=== PATIENT | female | born 1970 | race Caucasian/White ===

== ENCOUNTER 2016-03-22 18:50 | Emergency (ER) | payer MEDICAID ==
[~2016-03-22] VITALS: Ht 157.5 cm; Wt 78.5 kg
[~2016-03-22 18:50] MED LIST: CIPR500T4 PO; IBUP800T25 PO; SODI44SP11 NASAL
[2016-03-22 19:15] VITALS: Ht 157.5 cm; Wt 78.5 kg
[2016-03-22] MEDS ORDERED: IBUP-1542 PO (19:25)
[2016-03-22] MEDS ORDERED: ALBU8.5H3 INH (19:25)
[2016-03-22] MEDS ORDERED: GUAI120S26 PO (19:25)
[2016-03-22] MEDS ORDERED: CETI10CA PO (19:25)
--- NOTE | 2016-03-22 19:30 | ERD ---
ER Documentation Chief Complaint Date/Time DATE: 03/22/16 TIME: 19:28 Chief Complaint Fever and worsening cough HPI 45-year-old female presents to emergency department for complaints of fever cough runny nose nasal congestion for 7 days. Patient started to have fever 2 days ago. Patient has been having dry cough, did not patient does not present with clear nasal discharge. Patient does not have any sore throat or ear pain. Patient has been having on and off fever, take intolerance up with fever control. Patient does not have any chest pain or palpitations. Patient denies any dizziness. Patient denies any sick contacts. ROS All systems reviewed and are negative except as per history of present illness. Medications Home Meds Active Scripts Ibuprofen* (Motrin*) 600 Mg Tab, 600 MG PO Q6H Y for PAIN AND OR ELEVATED TEMP, #30 TAB Prov:TUNDE LAZARO NP 03/22/16 Cetirizine Hcl* (Zyrtec*) 10 Mg Capsule, 10 MG PO DAILY, #30 TAB.CHEW Prov:TUNDE LAZARO NP 03/22/16 Vvmoahujezt-U-Izecuosexu Hb* (Guaifenesin* DM Syrup) 120 Ml Syrup, 10 ML PO Q4H Y for COUGH, #120 ML Prov:TUNDE LAZARO NP 03/22/16 Albuterol Sulfate* (Proair HFA*) 8.5 Gm Hfa.aer.ad, 2 PUFF INH Q4H Y for WHEEZING AND SOB, #1 INHALER Prov:TUNDE LAZARO NP 03/22/16 Sodium Chloride (Saline Nasal [place]) 45 Ml [place], 2 SPRAYS NASAL Q2H, #1 BOTTLE Prov:OSORIO RAYMUNDO NP 09/04/15 Ibuprofen* (Motrin*) 800 Mg Tab, 800 MG PO Q8 Y for PAIN AND OR ELEVATED TEMP, # 30 TAB Prov:OSORIO RAYMUNDO NP 09/04/15 Ciprofloxacin Hcl* (Ciprofloxacin Hcl*) 500 Mg Tablet, 500 MG PO BID for 3 Days , TAB Prov:CRISTI VIDALES PA-C 11/01/14 Allergies Allergies: Coded Allergies: No Known Allergy (Verified , 09/04/15) PMhx/Soc Medical and Surgical Hx: pt denies Medical Hx History of Surgery: Yes ( section) Anesthesia Reaction: No Hx Neurological Disorder: No Hx Respiratory Disorders: No Hx Cardiac Disorders: No Hx Psychiatric Problems: No Hx Miscellaneous Medical Probl: No Hx Alcohol Use: No Hx Substance Use: No Hx Tobacco Use: No FmHx Family History: No coronary disease, No diabetes, No other Physical Exam Vitals Vital Signs Date Time Temp Pulse Resp B/P Pulse Ox O2 Delivery O2 Flow Rate FiO2 03/22/16 19:15 97.5 66 20 111/67 100 Physical Exam GENERAL: The patient is well developed and appropriate for usual state of health, in no apparent distress. HEENT: Atraumatic. Ears: Normal tympanic membrane, no erythema or bulging. No ear canal swelling. No ear discharge. Nose: Erythematous nasal turbinates with clear nasal discharge. Throat: oropharynx erythematous with postnasal drip. No tonsillar swelling or tonsillar exudates. No lymphadenopathy. CHEST: Clear to auscultation bilaterally. There are no rales, wheezes or rhonchi. HEART: Regular rate and rhythm. No murmurs, clicks, rubs or gallops. No S3 or S4. ABDOMEN: Soft, nontender and nondistended. Good bowel sounds. No rebound or guarding. No gross peritonitis. No gross organomegaly or masses. No Forrest sign or McBurney point tenderness. BACK: No midline or flank tenderness. EXTREMITIES: Equal pulses bilaterally. There is no peripheral clubbing, cyanosis or edema. No focal swelling or erythema. Full range of motion. Grossly neurovascularly intact. NEURO: Alert and oriented. Cranial nerves 2-12 intact. Motor strength in all 4 extremities with 5/5 strength. Sensation grossly intact. Normal speech and gait. SKIN: There is no apparent rash or petechia. The skin is warm and dry. HEMATOLOGIC AND LYMPHATIC: There is no evidence of excessive bruising or lymphedema. No gross cervical, axillary, or inguinal lymphadenopathy. Procedures/MDM Medical Decision Making: Patient symptoms are most likely consistent with acute bronchitis, which viral in origin. There is low suspicion for Pneumonia at this time since patients lungs sounds are clear, patient O2 saturation is normal and patient doesnt show any respiratory distress. Radiology exam is not indicated at this time. There is low suspicion for other cardiopulmonary emergencies at this time such as CHF, Pulmonary Embolism, Pneumothorax, or any other cardiopulmonary emergencies at this time. There is low suspicion for sepsis. Patient appears well and is hemodynamically stable. Fever is controlled with medicines . Disposition: Home. Condition: Stable Prescriptions: Zyrtec ibuprofen albuterol guaifenesin DM Instructions: Patient is advised to take medications as prescribed. Patient is advised to rest. Patient advised to increase fluid intake, do humidifier at home and if possible, do salt water gargles. Patient is advised that if symptoms are worse, shortness of breath, uncontrolled fever, stridor, vomiting, worst signs and symptoms to return to emergency department immediately. Otherwise, patient is advised to follow up with primary doctor in 5-7 days. Departure Diagnosis: Primary Impression: Acute bronchitis Bronchitis organism: unspecified organism Qualified Code: J20.9 - Acute bronchitis, unspecified organism Condition: Stable Patient Instructions: Bronchitis With Wheezing (Adult) TUNDE LAZARO NP Mar 22, 2016 19:30
== END 2016-03-22 19:31 | disposition home or self-care (01) ==
LOC: E/R 18:50
DX: J20.9 Acute bronchitis, unspecified (principal)
CPT/HCPCS: 99283

== ENCOUNTER 2016-05-18 19:25 | Emergency (ER) | payer MEDICAID ==
[~2016-05-18] VITALS: Ht 157.5 cm; Wt 77.0 kg
[~2016-05-18 19:25] MED LIST changes: +ALBU8.5H3 INH; +CETI10CA PO; +GUAI120S26 PO; +IBUP-1542 PO
[2016-05-18 20:04] VITALS: Ht 157.5 cm; Wt 77.0 kg
[2016-05-18 20:53] LABS: URINE BLOOD (Dip) POC Trace-intact (NEGATIVE)
[2016-05-18] MEDS ORDERED: IBUPROFEN 600 MG TAB PO ONE (21:00)
--- NOTE | 2016-05-18 22:02 | ERD ---
ER Documentation Chief Complaint Date/Time DATE: 05/18/16 TIME: 21:56 Chief Complaint Flu symptoms since yesterday, pelvic pain since 0300 HPI Pleasant 45-year-old female presenting to emergency department today for sore throat, body aches, fevers and chills for 2 days, and dysuria starting this morning when she woke up. Patient reports burning urgency and frequency of urination, cloudy urine, low back pain. Patient is able to eat and drink without deficit but reports pain with swallowing. Patient reports tactile fever but has taken no ksjj-hyg-hwdjgrp medication for symptomatic relief. ROS All systems reviewed and are negative except as per history of present illness. Medications Home Meds Active Scripts Ibuprofen* (Motrin*) 600 Mg Tab, 600 MG PO Q6H Y for PAIN AND OR ELEVATED TEMP, #30 TAB Prov:TUNDE LAZARO NP 03/22/16 Cetirizine Hcl* (Zyrtec*) 10 Mg Capsule, 10 MG PO DAILY, #30 TAB.CHEW Prov:TUNDE LAZARO NP 03/22/16 Zhgkjsfkhze-L-Hwkcioqdqa Hb* (Guaifenesin* DM Syrup) 120 Ml Syrup, 10 ML PO Q4H Y for COUGH, #120 ML Prov:TUNDE LAZARO NP 03/22/16 Albuterol Sulfate* (Proair HFA*) 8.5 Gm Hfa.aer.ad, 2 PUFF INH Q4H Y for WHEEZING AND SOB, #1 INHALER Prov:TUNDE LAZARO NP 03/22/16 Sodium Chloride (Saline Nasal [place]) 45 Ml [place], 2 SPRAYS NASAL Q2H, #1 BOTTLE Prov:OSORIO RAYMUNDO NP 09/04/15 Ibuprofen* (Motrin*) 800 Mg Tab, 800 MG PO Q8 Y for PAIN AND OR ELEVATED TEMP, # 30 TAB Prov:OSORIO RAYMUNDO NP 09/04/15 Ciprofloxacin Hcl* (Ciprofloxacin Hcl*) 500 Mg Tablet, 500 MG PO BID for 3 Days , TAB Prov:CRISTI VIDALES PA-C 11/01/14 Allergies Allergies: Coded Allergies: No Known Allergy (Verified , 09/04/15) PMhx/Soc Medical and Surgical Hx: pt denies Medical Hx History of Surgery: Yes ( section x2) Anesthesia Reaction: No Hx Neurological Disorder: No Hx Respiratory Disorders: No Hx Cardiac Disorders: No Hx Psychiatric Problems: No Hx Miscellaneous Medical Probl: No Hx Alcohol Use: Yes (occasional, socially only) Hx Substance Use: No Hx Tobacco Use: No Smoking Status: Never smoker Physical Exam Vitals Vital Signs Date Time Temp Pulse Resp B/P Pulse Ox O2 Delivery O2 Flow Rate FiO2 05/18/16 20:04 98.9 77 20 126/67 100 Vitals stable, nursing notes reviewed Physical Exam Const: No acute distress Head: Atraumatic Eyes: Normal Conjunctiva, no pallor, EOMI, PERRLA ENT: Bilateral tympanic membranes are translucent, nasal mucosa is moist, right turbinates touching, clear mucus noted, pharynx inflamed, cobblestoning, mucus noted, tonsils are not visualized, uvula rises and falls with pronation Neck: Full range of motion..~ No meningismus. No lymphadenopathy Resp: Chest rises and falls symmetrically clear to auscultation bilaterally no rales wheezes or rhonchi Cardio: Abd: Soft, non tender, non distended. Normal bowel sounds negative CVA tenderness Skin: Back: No midline or flank tenderness Ext: Neur: Awake and alert Psych: Normal Mood and Affect Results 24 hrs Laboratory Tests Test 05/18/16 20:52 Bedside Urine pH (LAB) 6.5 Bedside Urine Protein (LAB) Negative Bedside Urine Glucose (UA) Negative Bedside Urine Ketones (LAB) Negative Bedside Urine Blood Trace-intact Bedside Urine Nitrite (LAB) Negative Bedside Urine Leukocyte Esterase (L Negative Current Medications Medications (Trade) Dose Ordered Sig/Toña Route PRN Reason Start Time Stop Time Status Last Admin Dose Admin Ibuprofen (Motrin) 600 mg ONCE ONCE PO 05/18/16 21:00 05/18/16 21:02 DC 05/18/16 21:05 Procedures/MDM Pleasant 35-year-old female presenting to emergency department today with multiple complaints. Sore throat, body aches, fever and chills. Patient reports dysuria this morning. Urinalysis negative for evidence of urinary tract infection, urine will be sent for culture and sensitivity. Patient received Motrin while in exam room. Reports improvement with symptoms. Patient candidate for outpatient management, and follow-up with primary care physician. Increase fluids, increase rest, patient instructed to take cranberry pills, I feel the patient is stable for discharge at this time. I have discussed results, examination findings, the treatment plan with the patient and family present prior to discharge. Indications for emergent reevaluation, side effects of medication were also discussed. All questions were answered. Patient verbalizes understanding and agrees with plan of care. Departure Diagnosis: Primary Impression: Viral syndrome Additional Impression: Dysuria Patient Instructions: Dysuria, Viral Syndrome (Adult) Additional Instructions: Thank you for for coming to [facility] for your care today. Please ask your nurse or provider if you have questions about your care today and do not leave until all your questions have been answered. Please use any medications given as directed and follow-up with your doctor (or the doctor you were referred to) in the next 2-3 days. If you do not have a primary care doctor you [place] [facility] [place] You may also use motrin and tylenol as needed for fever and/or pain unless instructed otherwise by your provider or nurse. Indications for more urgent follow-up have been discussed, but you may return to the Emergency Department at ANY time for any worrisome or worsening symptoms. If you have abdominal pain, please know that no test or exam you received is perfect and you should follow up within 8 hours for continued pain. If you had any imaging studies today, such as an X-Ray or CT Scan, these studies will be reviewed later by a radiologist. You will be called if there are important findings that were not identified today, so make sure the contact information you provided at registration is correct. If you received any narcotic pain control medicine today, such as Vicodin, Morphine or Dilaudid, your coordination and judgment may be affected for a number of hours. Please do not drive or operate heavy machinery, and you may want someone to assist you at home. If you were given a prescription for narcotic medication, be aware that it is very addictive- use sparingly and only if necessary. ADRIANA NEFF May 18, 2016 22:02
[2016-05-18] MEDS ORDERED: IBUP-1542 PO (22:03)
[2016-05-18] MEDS ORDERED: CRAN1CAP2 PO (22:03)
== END 2016-05-18 22:42 | disposition home or self-care (01) ==
LOC: FTE 19:25
DX: B34.9 Viral infection, unspecified (principal); R30.0 Dysuria; R10.2 Pelvic and perineal pain
CPT/HCPCS: 81003; 87086; Z7610; 99283

== ENCOUNTER 2018-06-04 09:33 | Emergency (ER) | payer MEDICAID ==
[~2018-06-04] VITALS: Ht 152.4 cm; Wt 79.9 kg
[~2018-06-04 09:33] MED LIST changes: -ALBU8.5H3 INH; +ALBU8.5H8 INH; +CRAN1CAP2 PO; +GUAI120S25 PO; -GUAI120S26 PO; -IBUP800T25 PO; +IBUP800T48 PO
[2018-06-04 09:34] VITALS: BP 129/60; PULSE 63; RESP 17; Ht 152.4 cm; Wt 79.9 kg
[2018-06-04] MEDS ORDERED: KETOROLAC 30 MG INJ IV STA (10:27)
[2018-06-04] MEDS ORDERED: ONDANSETRON 4 MG INJ IV STA (10:27)
[2018-06-04] MEDS ORDERED: SOD CHLORIDE 0.9% 1,000 ML IV ONE (10:30)
[2018-06-04] MEDS ORDERED: ACET500C5 PO (12:28)
[2018-06-04] MEDS ORDERED: ONDA4TAB14 PO (12:28)
[2018-06-04] MEDS ORDERED: DOCU-144 PO (12:28)
--- NOTE | 2018-06-04 12:32 | ERD ---
ER Documentation Chief Complaint Chief Complaint vomiting and head pain x 2 days HPI 47-year old female patient with no significant past medical history presents the ED complaining of abdominal pain and vomiting that started 2 days ago. She describes her pain is achy and rates it a 6 out of 10. Reports that her last bowel movement was 2 days ago. States that she has had a few episodes of nonbilious nonbloody vomiting. Patient reports that her last menstruation is on May 20, 2018. Denies any dysuria, urgency, frequency, hematuria. Denies any area, neck stiffness, chest pain, shortness of breath, wheezing. ROS All systems reviewed and are negative except as per history of present illness. Medications Home Meds Active Scripts Ondansetron (Ondansetron Odt) 4 Mg Tab.rapdis, 4 MG PO Q6H PRN for NAUSEA AND/OR VOMITING, #10 TAB Prov:IZA RAND PA-C 06/04/18 Docusate Sodium* (Colace*) 100 Mg Capsule, 100 MG PO TID, #30 CAP Prov:IZA RAND PA-C 06/04/18 Acetaminophen* (Tylophen*) 500 Mg Capsule, 1 CAP PO Q6H PRN for PAIN AND OR ELEVATED TEMP, #20 CAP Prov:IZA RAND PA-C 06/04/18 Ibuprofen* (Motrin*) 600 Mg Tab, 600 MG PO Q6H PRN for PAIN AND OR ELEVATED TEMP, #30 TAB Prov:AISHWARYA,ADRIANA 05/18/16 Cranberry Conc/Ascorbic Acid (CRANBERRY 12,600 MG SOFTGEL) 1 Each Capsule, 1 EACH PO TID for 30 Days, CAP Prov:AISHWARYA,ADRIANA 05/18/16 Ibuprofen* (Motrin*) 600 Mg Tab, 600 MG PO Q6H PRN for PAIN AND OR ELEVATED TEMP, #30 TAB Prov:TUNDE LAZARO NP 03/22/16 Cetirizine Hcl* (Zyrtec*) 10 Mg Capsule, 10 MG PO DAILY, #30 TAB.CHEW Prov:TUNDE LAZARO NP 03/22/16 Xhcbuebxvvn-S-Kkhkuxcake Hb* (Guaifenesin* DM Syrup) 120 Ml Syrup, 10 ML PO Q4H PRN for COUGH, #120 ML Prov:TUNDE LAZARO HR ADVISOR 03/22/16 Albuterol Sulfate* (Proair HFA*) 8.5 Gm Hfa.aer.ad, 2 PUFF INH Q4H PRN for WHEEZING AND SOB, #1 INHALER Prov:TUNDE LAZARO HR ADVISOR 03/22/16 Sodium Chloride (Saline Nasal [place]) 45 Ml [place], 2 SPRAYS NASAL Q2H, #1 BOTTLE Prov:OSORIO RAYMUNDO HR ADVISOR 09/04/15 Ibuprofen* (Motrin*) 800 Mg Tab, 800 MG PO Q8 PRN for PAIN AND OR ELEVATED TEMP, #30 TAB Prov:OSORIO RAYMUNDO HR ADVISOR 09/04/15 Ciprofloxacin Hcl* (Ciprofloxacin Hcl*) 500 Mg Tablet, 500 MG PO BID for 3 Days, TAB Prov:CRISTI VIDALES PA-C 11/01/14 Allergies Allergies: Coded Allergies: No Known Allergy (Verified , 09/04/15) PMhx/Soc History of Surgery: Yes ( section x2) Anesthesia Reaction: No Hx Neurological Disorder: No Hx Respiratory Disorders: No Hx Cardiac Disorders: No Hx Psychiatric Problems: No Hx Miscellaneous Medical Probl: No Hx Alcohol Use: Yes (occasional, socially only) Hx Substance Use: No Hx Tobacco Use: No Smoking Status: Never smoker FmHx Family History: diabetes (Mother and father); No coronary disease Physical Exam Vitals Vital Signs Date Temp Pulse Resp B/P (MAP) Pulse Ox O2 O2 Flow FiO2 Time Delivery Rate 06/04/18 97.5 63 17 129/60 99 09:34 (83) Physical Exam Const: Kod-lpo-suhnlwilm, well-nourished. In no acute distress. Head: Atraumatic, normocephalic Eyes: Normal Conjunctiva without injection. No purulent discharge. ENT: Normal external ear, nose. Moist oropharynx without tonsillar exudates. Non-erythematous pharynx. Uvula midline. No drooling. No trismus. Neck: No cervical midline tenderness. Full range of motion. No meningismus. No cervical lymphadenopathy. No JVD. Resp: Clear to auscultation bilaterally. No wheezing, rhonchi, rales, or crackles. No accessory muscle use. No retractions. Cardio: Regular rate and rhythm. No murmurs, rubs or gallops. Abd: Soft, left lower quadrant tenderness, non distended. Normal bowel sounds. No palpable masses. No rebound tenderness. No guarding. Negative McBurney's point. Negative psoas sign. Negative obturator sign. Skin: No petechiae or rashes Back: No midline tenderness. No CVA tenderness. Ext: No cyanosis, or edema. Neur: Awake and alert. Normal gait. Normal coordination. Psych: Normal Mood and Affect Result Diagram: 06/04/18 1046 06/04/18 1046 Results 24 hrs Laboratory Tests Test 06/04/18 10:46 06/04/18 10:49 White Blood Count 7.0 10^3/ul Red Blood Count 4.40 10^6/ul Hemoglobin 13.7 g/dl Hematocrit 40.9 % Mean Corpuscular Volume 93.0 fl Mean Corpuscular Hemoglobin 31.1 pg Mean Corpuscular Hemoglobin Concent 33.5 g/dl Red Cell Distribution Width 13.6 % Platelet Count 234 10^3/UL Mean Platelet Volume 10.4 fl Immature Granulocytes % 0.100 % Neutrophils % 59.9 % Lymphocytes % 29.7 % Monocytes % 9.8 % Eosinophils % 0.4 % Basophils % 0.1 % Nucleated Red Blood Cells % 0.0 /100WBC Immature Granulocytes # 0.010 10^3/ul Neutrophils # 4.2 10^3/ul Lymphocytes # 2.1 10^3/ul Monocytes # 0.7 10^3/ul Eosinophils # 0.0 10^3/ul Basophils # 0.0 10^3/ul Nucleated Red Blood Cells # 0.0 10^3/ul Urine Color YELLOW Urine Clarity SLIGHTLY CLOUDY Urine pH 7.0 Urine Specific [place] 1.006 Urine Ketones NEGATIVE mg/dL Urine Nitrite NEGATIVE mg/dL Urine Bilirubin NEGATIVE mg/dL Urine Urobilinogen NEGATIVE mg/dL Urine Leukocyte Esterase NEGATIVE Noel/ul Urine Microscopic RBC 1 /HPF Urine Microscopic WBC 0 /HPF Urine Squamous Epithelial Cells MODERATE /HPF Urine Bacteria FEW /HPF Urine Hemoglobin NEGATIVE mg/dL Urine Glucose NEGATIVE mg/dL Urine Total Protein NEGATIVE mg/dl Sodium Level 141 mmol/L Potassium Level 4.0 mmol/L Chloride Level 105 mmol/L Carbon Dioxide Level 31 mmol/L Anion Gap 5 Blood Urea Nitrogen 12 mg/dl Creatinine 0.58 mg/dl Est Glomerular Filtrat Rate mL/min > 60 mL/min Glucose Level 88 mg/dl Calcium Level 9.7 mg/dl Total Bilirubin 0.5 mg/dl Direct Bilirubin 0.00 mg/dl Indirect Bilirubin 0.5 mg/dl Aspartate Amino Transf (AST/SGOT) 23 IU/L Alanine Aminotransferase (ALT/SGPT) 15 IU/L Alkaline Phosphatase 84 IU/L Total Protein 9.2 g/dl Albumin 4.4 g/dl Globulin 4.80 g/dl Albumin/Globulin Ratio 0.91 Lipase 70 U/L POC Beta HCG, Qualitative NEGATIVE Current Medications Medications Dose Sig/Toña Start Time Status Last (Trade) Ordered Route PRN Stop Time Admin Dose Reason Admin Sodium 1,000 ml @ Q1H ONCE 06/04/18 DC 06/04/18 Chloride 1,000 mls/hr IV 10:30 10:52 06/04/18 11:29 Ondansetron 4 mg ONCE STAT 06/04/18 DC 06/04/18 HCl (Zofran IV 10:27 10:51 Inj) 06/04/18 10:30 Ketorolac 30 mg ONCE STAT 06/04/18 DC 06/04/18 Tromethamine IV 10:27 10:50 (Toradol) 06/04/18 10:30 Procedures/MDM 47-year-old female patient with no significant past medical history presents to ED complaining of vomiting, abdominal pain that started 2 days ago. Patient is afebrile and nontoxic-appearing. Patient was further worked up with CBC, CMP, lipase, UA, CT of the abdomen and pelvis without contrast. Patient's pain and symptoms have improved after treatment with the 30 mg IV Toradol, 4 mg IV Zofran, 1 L of normal saline. CBC: No leukocytosis. No e/o of systemic infection. No e/o anemia. CMP: No e/o severe acidosis, alkalosis, renal failure, diabetic ketoacidosis, liver disease Lipase within normal limits. Urine: No leukocyte esterase, no nitrites, no hematuria. Urine : Negative IMPRESSION: 1. Scattered colonic diverticula, without diverticulitis. 2. No evidence of bowel obstruction, mass, lymphadenopathy, or acute inflamma tory process. Patient was noted to have scattered colonic diverticula without any evidence of diverticulitis on her CT scan. No leukocytosis. Low suspicion for ectopic , ovarian torsion, gastritis, GERD, peptic ulcer disease, cholecystitis, choledocholithiasis, cholangitis, pancreatitis, appendicitis, bowel obstruction, ileus, volvulus, nephrolithiasis, pyelonephritis, hepatitis, perforated viscus, diverticulitis, strangulated/incarcerated hernia, DKA, acute abdomen, mesenteric ischemia or other emergent conditions. Diagnosis: Vomiting, Abdominal Pain Discharge medications: Zofran, Colace, Zofran Follow up with primary care physician in 1-2 days for referral to infrastructure software engineer. Instructed patient to return to the ED sooner for any worsening symptoms. Patient's questions were answered. Patient understood and agreed with discharge plan. Patient discharged stable. Departure Diagnosis: Primary Impression: Vomiting Vomiting type: unspecified Vomiting Intractability: unspecified Nausea presence: unspecified Qualified Codes: R11.10 - Vomiting, unspecified Additional Impression: Abdominal pain Abdominal location: unspecified location Qualified Codes: R10.9 - Unspecified abdominal pain Condition: Stable Patient Instructions: Understanding Diverticulosis and Diverticulitis, Vomiting (6Y-Adult), Diverticulosis Referrals: [facility] YOU HAVE RECEIVED A MEDICAL SCREENING EXAM AND THE RESULTS INDICATE THAT YOU DO NOT HAVE A CONDITION THAT REQUIRES URGENT TREATMENT IN THE EMERGENCY DEPARTMENT. FURTHER EVALUATION AND TREATMENT OF YOUR CONDITION CAN WAIT UNTIL YOU ARE SEEN I N YOUR DOCTORS OFFICE WITHIN THE NEXT 1-2 DAYS. IT IS YOUR RESPONSIBILITY TO MAKE AN APPOINTMENT FOR FOLOW-UP CARE. IF YOU HAVE A PRIMARY DOCTOR --you should call your primary doctor and schedule an appointment IF YOU DO NOT HAVE A PRIMARY DOCTOR YOU CAN CALL OUR PHYSICIAN REFERRAL HOTLINE AT IF YOU CAN NOT AFFORD TO SEE A PHYSICIAN YOU CAN CHOSE FROM THE FOLLOWING [facility] CL[facility]ICS [facility] [address] [facility] [address] [facility] [facility] [address] [facility] [address] [facility] [address] [facility] [facility]. [address] [facility]. [facility] YOU HAVE RECEIVED A MEDICAL SCREENING EXAM AND THE RESULTS INDICATE THAT YOU DO NOT HAVE A CONDITION THAT REQUIRES URGENT TREATMENT IN THE EMERGENCY DEPARTMENT. FURTHER EVALUATION AND TREATMENT OF YOUR CONDITION CAN WAIT UNTIL YOU ARE SEEN IN YOUR DOCTORS OFFICE WITHIN THE NEXT 1-2 DAYS. IT IS YOUR RESPONSIBILITY TO MAKE AN APPOINTMENT FOR FOLOW-UP CARE. IF YOU HAVE A PRIMARY DOCTOR --you should call your primary doctor and schedule and appointment IF YOU DO NOT HAVE A PRIMARY DOCTOR YOU CAN CALL OUR PHYSICIAN REFERRAL HOTLINE AT . IF YOU CAN NOT AFFORD TO SEE A PHYSICIAN YOU CAN CHOSE FROM THE FOLLOWING [facility] INSTITUTIONS: [facility] [address] [place] [address] [facility] [address] [place] [address] [facility] [address] [place] [address] [facility] URGENT C[facility]/SPECIALTIES Additional Instructions: Call your primary care doctor TOMORROW for an appointment during the next 2-3 days.See the doctor sooner or return here if your condition worsens before your appointment time. IZA RAND PA-C Jun 04, 2018 12:32
== END 2018-06-04 12:40 | disposition home or self-care (01) ==
LOC: FTE 09:33
DX: R11.10 Vomiting, unspecified (principal); R10.9 Unspecified abdominal pain
CPT/HCPCS: 36415; 74176; 80053; 81001; 81025; 83690; 85025; 96361; 96374; 96375; J1885; J2405; J7030; Z7502; 81003

== ENCOUNTER 2018-06-30 07:03 | Emergency (ER) | payer MEDICAID ==
[~2018-06-30] VITALS: Ht 165.1 cm; Wt 78.3 kg
[~2018-06-30 07:03] MED LIST changes: +ACET500C5 PO; +DOCU-144 PO; +ONDA4TAB14 PO
[2018-06-30 07:11] VITALS: BP 118/55; PULSE 77; RESP 20; Ht 165.1 cm; Wt 78.3 kg
[2018-06-30] MEDS ORDERED: ACETAMINOPHEN 500 MG TAB PO STA (07:32)
[2018-06-30] MEDS ORDERED: IBUP-1542 PO (09:34)
--- NOTE | 2018-06-30 16:39 | ERD ---
ER Documentation Chief Complaint Chief Complaint smashed right finger yesterday, hands tingling now HPI This is a 47 yo female who presents with pain in right hand s/p getting hand stuck in garage door yesterday, cramping pain, has tried ice and tylenol and still has pain, describes tingling sensation in right 2nd finger. ROS All systems reviewed and are negative except as per history of present illness. Medications Home Meds Active Scripts Ibuprofen* (Motrin*) 600 Mg Tab, 600 MG PO Q6, #30 TAB Prov:ALIRIO GALAN NP 06/30/18 Ondansetron (Ondansetron Odt) 4 Mg Tab.rapdis, 4 MG PO Q6H PRN for NAUSEA AND/OR VOMITING, #10 TAB Prov:IAZ RAND PA-C 06/04/18 Docusate Sodium* (Colace*) 100 Mg Capsule, 100 MG PO TID, #30 CAP Prov:IZA RAND PA-C 06/04/18 Acetaminophen* (Tylophen*) 500 Mg Capsule, 1 CAP PO Q6H PRN for PAIN AND OR ELEVATED TEMP, #20 CAP Prov:IZA RAND PA-C 06/04/18 Ibuprofen* (Motrin*) 600 Mg Tab, 600 MG PO Q6H PRN for PAIN AND OR ELEVATED TEMP, #30 TAB Prov:AISHWARYA,ADRIANA 05/18/16 Cranberry Conc/Ascorbic Acid (CRANBERRY 12,600 MG SOFTGEL) 1 Each Capsule, 1 EACH PO TID for 30 Days, CAP Prov:AISHWARYA,ADRIANA 05/18/16 Ibuprofen* (Motrin*) 600 Mg Tab, 600 MG PO Q6H PRN for PAIN AND OR ELEVATED TEMP, #30 TAB Prov:TUNDE LAZARO NP 03/22/16 Cetirizine Hcl* (Zyrtec*) 10 Mg Capsule, 10 MG PO DAILY, #30 TAB.CHEW Prov:TUNDE LAZARO NP 03/22/16 Pibeltazyvu-J-Makckqkxet Hb* (Guaifenesin* DM Syrup) 120 Ml Syrup, 10 ML PO Q4H PRN for COUGH, #120 ML Prov:TUNDE LAZARO NP 03/22/16 Albuterol Sulfate* (Proair HFA*) 8.5 Gm Hfa.aer.ad, 2 PUFF INH Q4H PRN for WHEEZING AND SOB, #1 INHALER Prov:TUNDE LAZARO VETERINARY MANAGER 03/22/16 Sodium Chloride (Saline Nasal Mentone) 45 Ml Mentone, 2 SPRAYS NASAL Q2H, #1 BOTTLE Prov:BREANNE,OSORIO Anya. VETERINARY MANAGER 09/04/15 Ibuprofen* (Motrin*) 800 Mg Tab, 800 MG PO Q8 PRN for PAIN AND OR ELEVATED TEMP, #30 TAB Prov:OSORIO RAYMUNDO. VETERINARY MANAGER 09/04/15 Ciprofloxacin Hcl* (Ciprofloxacin Hcl*) 500 Mg Tablet, 500 MG PO BID for 3 Days, TAB Prov:CRISTI VIDALES PA-C 11/01/14 Allergies Allergies: Coded Allergies: No Known Allergy (Verified , 09/04/15) PMhx/Soc History of Surgery: Yes ( section x2) Anesthesia Reaction: No Hx Neurological Disorder: No Hx Respiratory Disorders: No Hx Cardiac Disorders: No Hx Psychiatric Problems: No Hx Miscellaneous Medical Probl: No Hx Alcohol Use: Yes (occasional, socially only) Hx Substance Use: No Hx Tobacco Use: No Smoking Status: Never smoker FmHx Family History: No diabetes, No coronary disease, No other Physical Exam Vitals Vital Signs Date Temp Pulse Resp B/P (MAP) Pulse Ox O2 O2 Flow FiO2 Time Delivery Rate 06/30/18 97.8 77 20 118/55 98 07:11 (76) Physical Exam Const: No acute distress Head: Atraumatic Eyes: Normal Conjunctiva ENT: Normal External Ears, Nose and Mouth. Neck: Full range of motion. No meningismus. Resp: Clear to auscultation bilaterally Cardio: Regular rate and rhythm, no murmurs Abd: Soft, non tender, non distended. Normal bowel sounds Skin: No petechiae or rashes Ext: No cyanosis, or edema. Right Hand: tender to palpation at 3rd metacarpal, 3/5 electro optics engineer strength, sensation and motor intact, no bruising, no swelling, no abrasions, FROM. Right Forearm: tender at med/lat wrist, no decr ROM, sensation intact, no elbow or shoulder tenderness Neur: Awake and alert Psych: Normal Mood and Affect Results 24 hrs Current Medications Medications Dose Sig/Toña Start Time Status Last (Trade) Ordered Route PRN Stop Time Admin Dose Reason Admin 1,000 mg ONCE STAT 06/30/18 DC 06/30/18 Acetaminophen PO 07:32 07:37 (Tylenol 06/30/18 07:34 Tab) Procedures/MDM This is a 47-year-old female who presents the emergency room with complaint of pain in the right hand after getting stuck in garage yesterday. ED COURSE: The patient was stable throughout ED course. I kept the patient and/or family informed of laboratory and diagnostic imaging results throughout the ED course. EKG: DIAGNOSTIC IMAGING: Read by radiologist. IMPRESSION: Unremarkable right forearm. Normal x-ray of the right hand x-ray . PROCEDURES: Prefabricated volar splint application with sling MEDICATIONS GIVEN: Tylenol Patient tolerated medication well with no adverse reactions. Patient reported improvement in pain. MDM: Splint Assessment: Neurovascularly intact post splint placement with good fit. Patient's extremity symptoms have stabilized while they have been evaluated in the department and are appropriate for outpatient follow up. No evidence of compartment syndrome, neurologic injury, vascular injury, open joint, open fracture, tendon laceration, or foreign body. DISPOSITION: The patient has been discharge home to follow-up with community physician. Departure Diagnosis: Primary Impression: Muscle strain, upper arm Condition: Stable Patient Instructions: Muscle Strain, Extremity Additional Instructions: Thank you very much for allowing us to participate in your care. Your health and safety is our top priority at [facility]. Call your primary care doctor TOMORROW for an appointment during the next 2-4 days and bring all the information and medications prescribed. Have prescriptions filled and follow precisely the directions on the label. If the symptoms get worse and your provider is unavailable, return to the Emergency Department immediately. Your x-rays are negative for fracture, dislocation, Abnormalities. use splint and sling for 3 to 5 days with ice and ibuprofen for comfort. Follow-up with your primary doctor for further evaluation. ALIRIO GALAN NP June 30, 2018 16:39
== END 2018-06-30 09:49 | disposition home or self-care (01) ==
LOC: FTE 07:03
DX: S46.911A Strain of unspecified muscle, fascia and tendon at shoulder and upper arm level, right arm, initial encounter (principal); W23.0XXA Caught, crushed, jammed, or pinched between moving objects, initial encounter; Y92.094 Garage of other non-institutional residence as the place of occurrence of the external cause
CPT/HCPCS: 29125; 73090; 73130; Z7502; Z7610